=== PATIENT | female | born 1995 | race Hispanic/Latino ===

== ENCOUNTER 2017-11-27 22:50 | Inpatient (IN) | payer OTHER, MEDICAID, SELFPAY ==
[2017-11-27 23:55] VITALS: BP 120/53; PULSE 138; RESP 16; TEMP 39.4; O2SAT 99
[2017-11-28] VITALS (14 sets, daily range): BP systolic 90–114; BP diastolic 45–80; PULSE 79–130; RESP 15–20; TEMP 36.4–38.3; O2SAT 94–100; BMI 29.9
--- NOTE | 2017-11-28 | PATH_ITS ---
[facility] Accession Number: [id number] . 01 Material submitted: . APPENDIX . 02 Diagnosis: Appendix: Acute necrotizing appendicitis. I/12/03/2017 . 02 Electronically signed: . Poncho Tilley MD, Pathologist NPI- [id number] . 02 Gross description: . Received in formalin labeled appendix, is an intact appendix (length 4.7 cm, diameter 0.7 cm) with red-brown smooth shiny serosa and mesoappendix (up to 0.9 cm in depth). Starr-yellow flaky friable exudate covers a portion of the specimen. The lumen contains breen-pink solid soft material. The wall is up to 0.3 cm thick. No nodules, masses, or lesions are identified. The resection margin is inked black. Section code: (A1) resection margin enface and 3 additional slices; (A2) one half of the bivalved tip. (JM:bf) /BFI . 02 Pathologist provided ICD-10: K35.80 . 02 CPT . 094011 Performed at: 01 [facility] [address] [place] [address], [place], [place] [id number] MD Ramy Gomez MD Phone: [phone] Performed at: [address] [id number] [place], [place] [id number] MD Shashi Kim MD Phone: [phone]
--- NOTE | 2017-11-28 00:44 | PM.HP.1 ---
History of Present Illness Date Patient Seen: 11/28/17 Time Patient Seen: 00:44 Chief complaint: APPENDICITIS Narrative: Patient is an otherwise healthy young woman who has had 4 days of lower abdominal pain accompanied by anorexia but no real nausea or vomiting. Her last p.o. liquids were yesterday and her last p.o. solids with the day before. She has never had pain like this before. It increases with motion. She has received a fair amount of narcotics at the hospital from when she was transferred to control her pain. Even so with even slight motion she has significant pain. There is an underlying continuous pain as well. Patient History Medical History Healthy female adult (Acute) Family & Social History Safety & Behavioral: Feels Safe in Current Yes Environment Been Physically Hurt or No Threatened By a Person Suicidal Ideation Description None Suicide Plan Description No Plan Tobacco & Substance use: Smoking Status Never smoker alcohol intake frequency a few times a month Meds Allergies Allergy/AdvReac Type Severity Reaction Status Date / Time No Known Drug Allergies Allergy Verified 11/28/17 00:42 Review of Systems Review of Systems No visual difficulties double vision pain arise earaches or sore throat. No cough cold or asthma. No tooth aches or trouble swallowing. No heart problems or murmurs chest pain. No black or bloody bowel movements. No seizures or blackouts. No numbness or tingling. No problems with the pancreas or thyroid she is aware of. Normal menstrual period Last week. Exam Vital Signs (past 8 hours): - 11/27/17 23:55 Temperature 103.0 F H Pulse Rate 138 H Respiratory Rate 16 Blood Pressure 120/53 L Pulse Oximetry 99 Narrative Exam Narrative: Co- Operative pleasant woman in no apparent distress. She is warm to the touch. Eyes are nonicteric. Pupils are small round and equal bilaterally conjunctivae are pink. Sclera white. Has swelling about the lids. Years without lesion. Nasal septum midline oral mucosa is dry no open lesions. Teeth are intact. She has some scarring about the face from acne. No other visible skin lesions. Her legs are hairless but she does occasionally shave them. I feel no nodes in the neck or supraclavicular areas. Her trachea is midline and mobile. Thyroid is not enlarged. There are no masses or tenderness in the neck or thyroid. Her lungs are clear to auscultation without rales or rhonchi and equal percussion. Heart very rapid rate and rhythm. No murmur or gallop appreciated. No bruit in the neck. Her abdomen is mildly protuberant and distended. She has involuntary guarding with rebound tenderness. No hernias are appreciated. No obvious enlargement of the liver spleen on percussion. She is alert and oriented x3. Speech rate and content are appropriate. Affect is appropriate. Reflexes appear to be symmetric 2+. She has 2+ dorsalis pedis pulses. Face is symmetric tongue is midline uvula elevates in the midline. Extraocular movements are intact. Objective Imaging CT scan - abdomen: Radiologist's impression: I do not have films to review as they were pushed to our institution but unfortunately there is no one to organized those at night and so I cannot review them. No disc was sent with the patient. The report reveals evidence of a perforated appendix and gallstones. There is free fluid in the abdomen. Labs Labs: Labs from [facility] her electrolytes are within normal limits. Liver function tests within normal limits. Lipase is 74 and normal. White count is 18 with an H&H of 14 and 42. Platelet count is 327. She has 85 neutrophils 6 lymphocytes and 7 monocytes. Assessment & Plan (1) Acute perforated appendicitis: Current visit: Yes Status: Acute (2) Cholelithiasis: Current visit: Yes Status: Chronic Plan: Assessment/Plan Narrative: Patient with a 4 day history of abdominal pain and physical exam with diffuse peritonitis, a rigid abdomen with involuntary guarding and tachycardia with a pulse of 128 and with a temperature to 103 suggesting sepsis. Patient has received a dose of Zosyn in the referring hospital at 10:30 pm 11/27. Will give her Tylenol, a fluid bolus, and ultimately take to the operating room to remove her appendix and irrigated out her abdomen. I should be able to do this laparoscopically. I talked to the patient about operating. Risks of bleeding infection abscess future difficulty with fertility all discussed with her. She appears to understand and wishes to proceed. Have no plan at this time to deal surgically with her gallstones. If they become symptomatic she may need to have them removed in the future.
[2017-11-28] MEDS: LACTATED RINGERS 1,000 ML 1000 ML IV (00:53)
[2017-11-28] MEDS: ACETAMINOPHEN 325 MG TABLET 650 MG PO (01:03)
[2017-11-28 01:23] LABS: Pregnancy Test Urine Negative (Negative)
[2017-11-28] MEDS: PIPERACILLIN-TAZO 3.375 GM/50 ML FROZ.PIGGY IV ×4 (03:02→20:28)
[2017-11-28] MEDS: BUPIVACAINE 0.5% (PF) 30 ML VIAL INJ (03:11)
--- NOTE | 2017-11-28 03:24 | PM.OP.1 ---
Operative Date/Time/Diagnoses Date of procedure: 11/28/17 Time of procedure: 03:24 Pre-op diagnosis: Perforated appendicitis Post-op diagnosis: same Procedure & Clinicians Procedure: Laparoscopic appendectomy Same procedure as scheduled: Yes Indications: Perforated appendicitis with peritonitis and sepsis Surgeon: Carlos Vazquez Click Yes if Unassisted: Yes Anesthesia Type: General Operative Notes Findings: Perforated appendix with the tip adherent to the right tube and ovary. SCOAP protocol was followed. Closure Type: primary Specimen(s): other (Appendix) Implants & Drains: 7 mm Manuel-Alicea drain Estimated Blood Loss (mL): 5 Blood products transfused: none Procedure in detail: The patient was placed supine on the operating room table underwent general endotracheal anesthesia. A Agudelo catheter was placed and she was prepped and draped in the usual fashion. Local anesthetic was infiltrated beneath the umbilicus and a small incision made here. It was carried down the level of the fascia. The fascia was opened the peritoneum entered under direct vision. Stay sutures of 0 Polysorb were placed in the fascia and his son cannula was inserted. The abdomen is insufflated. Two additional ports were placed 1 between the umbilicus and pubis on the 2nd in the left lower quadrant. The appendix was readily identified it was a adherent to the right tube and ovary. Cultures were taken of the fluid within the pelvis. Using blunt dissection the appendix was dissected away from the tube and ovary and the mesentery was divided with cautery. a tie was placed at the base of the appendix of 0 PDS the appendix was transected distal to this and immediately placed in a bag and removed without spillage. The end of the a appendiceal mucosa was cauterized. The pelvis and right gutter and right upper quadrant were irrigated and suctioned free of purulent material. A drain was placed in the pelvis and right gutter. It Was brought out through the port site between the umbilicus and pubis. It was secured with a 3 0 nylon. The ports were then all removed and the stay sutures at the umbilicus were tied. The wounds were irrigated and the skin closed with interrupted 4 0 Polysorb subcuticular stitches and Steri-Strips. Dressings were applied and the patient was awakened and taken recovery area in good condition. Complications: none Condition: stable Disposition: PACU Plan for aftercare: Admit IV antibiotics fluids
[2017-11-28] MEDS: LACTATED RINGERS 1,000 ML 42 ML IV (04:06)
[2017-11-28] MEDS: DEXTROSE 5%-LACTATED RINGERS 1,000 ML 125 ML IV ×2 (04:25→12:53)
--- NOTE | 2017-11-28 07:05 | PC.NURSE ---
0400: pt arrived from pacu, denied pain or n/v, abdomen distended, lap sites x3 cdi. IVF infusing. BTX4 hypoactive. low BP, but denies dizziness or lightheadedness. 0640: pt c/o abdominal pain, morphine ACCOUNTING COORDINATOR 2mg, 20min, 30. Right after pushing her pain button she felt nauseous and had 20cc of emesis. notified Dr. Vazquez, VTO for zofran 4mg PRN. pt has been up to the bathroom a couple times.
[2017-11-28] MEDS: ONDANSETRON 4 MG/2 ML INJ IV (08:42)
--- NOTE | 2017-11-28 09:00 | PC.NURSE ---
Addendum entered by Monica Hendrickson R.N. 11/28/17 11:35: Pt reports nausea has improved, ambulating in velazquez with STRAIN TECHNICIAN. Original Note: Pt c/o nausea, ne emesis, given 4mg ivp zofran.
--- NOTE | 2017-11-28 13:28 | PC.NURSE ---
ASSUMED CARE OF PT AT APPROX 1315. UPON ROUNDING ON PT. PT SITTING UP IN CHAIR. IVF INFUSING PER ORDERS. CENTRAL SUPPLY TECHNICIAN SETTINGS VERIFIED PER EMAR. PT DENIES NEEDS. CALL LIGHT WITHIN REACH.
[2017-11-28] MEDS: MORPHINE PCA 30 MG/30 ML PCA.VIAL IV ×2 (14:38→22:33)
--- NOTE | 2017-11-28 16:28 | CM.DANOTE ---
Discharge Planning/Care Management DCP: assessment: case received, EMR reviewed and met with pt. Introduced self and role. Pt is a 22 year old female [place] [facility] [place] taken to surgery by Dr. Vazquez late last night. DX: appendicitis/perforated. Payer: [place]/Medicaid P: home when stable for same. DCP team to follow prn for any d/c needs that may arise, none are identified at this time. CM Discharge Assessment Start: 11/28/17 16:25 Freq: Status: Active Protocol: Document 11/28/17 16:26 ITV (Rec: 11/28/17 16:28 ITV [id number]) Discharge Planning Assessment History Provided By Patient Medical Record Has Patient been admitted in last 30 No days? Household Members spouse family Comment pt lives in [place] with her spouse and faustino. Spouse rooming in, faustino will pick her up at d/c. Pt brought [place] [facility] [place] direct [place] Independent with ADL's Yes Is patient alert and oriented? Yes Discharge Plan Home Transportation Arrangement faustino will pick her up Review Status In Process Next Review Type Continued Stay Review
--- NOTE | 2017-11-28 23:35 | PC.NURSE ---
Addendum entered by Florencia Sommers R.N. 11/29/17 06:29: Slept well during night. States pain is 6/10 this morning and tolerable. Using TAKE OUT WAITER/WAITRESS as needed and used 6mg this shift. Original Note: Addendum entered by Florencia Sommers R.N. 11/29/17 00:08: Refused to put on SCD's even after reminder of purpose. States they are too hot for her to be able to sleep with them on. Reminded to ankle wave when awake. Original Note: Alert and oriented. Breath sounds CTA with RA sat of 99%. HRR. Denies nausea. BT absent but abdomen is soft. Tender around umbilicus and distended. States she is burping but denies flatus. Bandaid dressings to abdomen is CDI. ELVI compressed with serosanguinous drainage noted in bulb. Denies urinary concerns. SBA to bathroom and voided 300cc clear yellow urine. Independent with bed mobility. Moderate fall risk but alarm is not felt to be necessary as has been calling appropriately for assistance. States abdominal pain is currently 7/10 but is comfortable and has TAKE OUT WAITER/WAITRESS to use as needed.
[2017-11-29] VITALS (7 sets, daily range): BP systolic 90–114; BP diastolic 46–67; PULSE 59–84; RESP 14–18; TEMP 36.2–36.7; O2SAT 99–100
[2017-11-29] MEDS: PIPERACILLIN-TAZO 3.375 GM/50 ML FROZ.PIGGY IV ×4 (02:47→20:44)
[2017-11-29 05:28] LABS: Add Manual Diff / Slide Review NO; Basophils Percent Auto 0.2 % (0-2); Hematocrit 35.7 % (36-46); Hemoglobin 12.1 g/dL (12.0-16.0); Lymphocytes Percent Auto 6.8 % (25-40); Mean Corpuscular Hemoglobin 29.8 PG (26-34); Mean Corpuscular Volume 87.8 fL (80-100); Monocytes Percent Auto 7.1 % (3-14); Neutrophils Absolute Auto 22500 /uL (3000-5900); Neutrophils Percent Auto 85.9 % (50-75); Platelet Count 307 X10^3/uL (150-400); Red Blood Cell Count 4.07 X10^6/uL (4.0-5.2); Red Cell Distribution Width 12.9 % (11.6-14.8); White Blood Cell Count 26.2 X10^3/uL (4.5-11.0)
[2017-11-29] MEDS: MORPHINE PCA 30 MG/30 ML PCA.VIAL IV (06:27)
[2017-11-29] MEDS: DEXTROSE 5%-LACTATED RINGERS 1,000 ML 42 ML IV (08:48)
--- NOTE | 2017-11-29 12:26 | P.PN_ITS ---
Subjective Date Patient Seen: 11/29/17 Time Patient Seen: 12:24 Interval history: Patient feels better than yesterday. Hardly ever uses her SURVEYING TECHNICIAN except last night she used to when she turned over and had some pain. No nausea. Eating well. Exam Vital Signs (past 8 hours): - 11/29/17 05:58 11/29/17 08:00 Temperature 97.2 F L 97.3 F L Pulse Rate 84 59 L Respiratory Rate 16 14 Blood Pressure 106/66 102/49 L Pulse Oximetry 100 100 Oxygen Delivery Method Room Air Oxygen Flow Rate 0 Narrative Exam Narrative: Preoperative guarding and tenderness have disappeared. Band- aids are dry and intact. The drainage is a little cloudy. Objective Labs Result Diagrams: 11/29/17 05:06 Labs: Laboratory Results - last 24 hr 11/29/17 05:06 WBC 26.2 H RBC 4.07 Hgb 12.1 Hct 35.7 L MCV 87.8 MCH 29.8 MCHC 34.0 RDW 12.9 Plt Count 307 Neut % (Auto) 85.9 H Lymph % (Auto) 6.8 L [place] % (Auto) 7.1 Eos % (Auto) 0.0 L Baso % (Auto) 0.2 Neut # (Auto) 17023 H Assessment & Plan Post-op (1) Acute perforated appendicitis: Current Visit: Yes Status: Acute Assessment and plan: Doing. White blood cell count however it has gone up within down. Little bit concerning but clinic will continue her IV antibiotics but mobilized further by saline locking her IV and switch her to p.o. pain meds. Continue DVT prophylaxis. Postoperative Procedures Operation Date: 11/28/17 01:40 Actual Procedures Side Surgeon p Laparoscopic Appendectomy Not Applicable Carlos Vazquez MD Time Spent With Patient less than 15 minutes
[2017-11-29] MEDS: SODIUM CHLORIDE 0.9% FLUSH 10 ML IV ×2 (13:46→20:45)
--- NOTE | 2017-11-29 14:50 | PC.NURSE ---
1430 Pt is up and about in the room, BRP. denies pain at this time. Remains on IV antibx. VS WNL. eating gen diet .
--- NOTE | 2017-11-29 14:52 | CM.DPC ---
DCP Cont: Patient is continuing on IV antibiotics, secondary to post-appendectomy, unstable white count. P: Will check in tomorrow, goal is to go home with family, as soon as she can go on oral antibiotics. Tawny Khan RN/Technical Photographer
--- NOTE | 2017-11-29 22:54 | PC.NURSE ---
SHIFT NOTE Pt reports increase in vaginal discharge, possible yeast infection, denies any itching or discomfort. advised to eat more yogurt for probiotics due to IV antibiotics. will communicate to oncoming RN to monitor.
[2017-11-30] MEDS: PIPERACILLIN-TAZO 3.375 GM/50 ML FROZ.PIGGY IV ×4 (03:25→20:39)
[2017-11-30] MEDS: HYDROCODONE/ACET 5/325 TABLET 1 TAB PO (03:25)
[2017-11-30 06:08] VITALS: BP 96/54; PULSE 71; RESP 16; TEMP 36.8; O2SAT 99
[2017-11-30 08:30] VITALS: BP 101/64; PULSE 79; RESP 15; TEMP 36.5; O2SAT 99
[2017-11-30] MEDS: SODIUM CHLORIDE 0.9% FLUSH 10 ML IV ×2 (09:08→20:39)
[2017-11-30 09:46] LABS: Add Manual Diff / Slide Review NO; Basophils Percent Auto 0.5 % (0-2); Eosinophils Percent Auto 1.1 % (2-4); Hematocrit 36.7 % (36-46); Hemoglobin 12.4 g/dL (12.0-16.0); Lymphocytes Percent Auto 27.1 % (25-40); Mean Corpuscular HGB Conc 33.7 % (30-36); Mean Corpuscular Hemoglobin 29.8 PG (26-34); Mean Corpuscular Volume 88.3 fL (80-100); Monocytes Percent Auto 6.2 % (3-14); Neutrophils Absolute Auto 7800 /uL (3000-5900); Neutrophils Percent Auto 65.1 % (50-75); Platelet Count 321 X10^3/uL (150-400); Red Blood Cell Count 4.15 X10^6/uL (4.0-5.2); Red Cell Distribution Width 13.1 % (11.6-14.8); White Blood Cell Count 11.9 X10^3/uL (4.5-11.0)
--- NOTE | 2017-11-30 11:10 | PC.NURSE ---
1100 Pt ambulatory in the room, up in chair, BRP. denies pain. No c/o ELVI drain to abd intact.
--- NOTE | 2017-11-30 12:11 | CM.DPC ---
DCP Cont: Patient is continuing on IV antibiotics, secondary to appendecitis. P: Will return home as soon as patient's white blood cell count is stable, and she can go on oral antibiotics. Tawny Khan RN/Architectural Technologist
--- NOTE | 2017-11-30 13:20 | P.PN_ITS ---
Subjective Date Patient Seen: 11/30/17 Time Patient Seen: 13:18 Exam Vital Signs (past 8 hours): - 11/30/17 06:08 11/30/17 08:30 Temperature 98.3 F 97.7 F Pulse Rate 71 79 Respiratory Rate 16 15 Blood Pressure 96/54 L 101/64 Pulse Oximetry 99 99 Oxygen Delivery Method Room Air Oxygen Flow Rate 0 Narrative Exam Narrative: Patient is feeling okay. Tolerating diet. She is passing flatus. Not had a bowel movement. Objective Labs Result Diagrams: 11/30/17 09:35 Labs: Laboratory Results - last 24 hr 11/30/17 09:35 WBC 11.9 H D RBC 4.15 Hgb 12.4 Hct 36.7 MCV 88.3 MCH 29.8 MCHC 33.7 RDW 13.1 Plt Count 321 Neut % (Auto) 65.1 D Lymph % (Auto) 27.1 D Jenkins % (Auto) 6.2 Eos % (Auto) 1.1 L Baso % (Auto) 0.5 Neut # (Auto) 7800 H Assessment & Plan Post-op Postoperative Procedures Operation Date: 11/28/17 01:40 Actual Procedures Side Surgeon p Laparoscopic Appendectomy Not Applicable Carlos Vazquez MD Postoperative status: doing well Postoperative plan: other (Drain removed. We will probably discharge tomorrow morning. White blood cell count down to normal.) Time Spent With Patient 25 - 35 minutes
--- NOTE | 2017-11-30 13:55 | PC.NURSE ---
Pt up ambulating in [facility], Dr Vazquez dcd the ELVI tube at approx 12noon today. Will cont w/IV antibx per .
[2017-11-30 14:49] VITALS: BP 104/66; PULSE 74; RESP 15; TEMP 36.4; O2SAT 100
[2017-11-30 18:38] VITALS: BP 104/64; PULSE 95; RESP 16; TEMP 36.4; O2SAT 100
[2017-11-30 22:14] VITALS: BP 117/69; PULSE 80; RESP 16; TEMP 36.2; O2SAT 100
[2017-12-01 00:01] VITALS: BP 119/76; PULSE 89; RESP 16; TEMP 36.6; O2SAT 99
[2017-12-01] MEDS: PIPERACILLIN-TAZO 3.375 GM/50 ML FROZ.PIGGY IV (03:11)
[2017-12-01 05:14] LABS: Add Manual Diff / Slide Review NO; Basophils Percent Auto 0.3 % (0-2); Eosinophils Percent Auto 1.4 % (2-4); Hematocrit 38.2 % (36-46); Hemoglobin 13.1 g/dL (12.0-16.0); Lymphocytes Percent Auto 19.6 % (25-40); Mean Corpuscular HGB Conc 34.3 % (30-36); Mean Corpuscular Hemoglobin 30.1 PG (26-34); Mean Corpuscular Volume 87.8 fL (80-100); Monocytes Percent Auto 7.4 % (3-14); Neutrophils Absolute Auto 10700 /uL (3000-5900); Neutrophils Percent Auto 71.3 % (50-75); Platelet Count 384 X10^3/uL (150-400); Red Blood Cell Count 4.35 X10^6/uL (4.0-5.2)
[2017-12-01 05:45] VITALS: BP 116/66; PULSE 96; RESP 16; TEMP 36.7; O2SAT 98
[2017-12-01] MEDS: SODIUM CHLORIDE 0.9% FLUSH 10 ML IV (08:05)
[2017-12-01 08:14] VITALS: O2SAT 99
[2017-12-01 08:51] VITALS: BP 102/63; PULSE 89; RESP 14; TEMP 36.6; O2SAT 98
--- NOTE | 2017-12-01 09:49 | PC.NURSE ---
Addendum entered by Flor De La O R.N. 12/01/17 11:15: Discharge: IV dc'd intact. Reviewed and provided all d/c info. All belongings collected and sent with patient. Wheeled out to private vehicle by this newswriter. Original Note: Shift summary: Alert and oriented X3. Denies pain. Lap sites to abd C/D/I, one with scant old drainage. BT+, flatus+. Had a BM on the night club manager (first post-op). Denies N/V. Denies fever/chills. Abd soft. C/O discomfort with IV flush this morning- held IV abx r/t the same, will let MD know. She's hoping she will be dc'd home today. Up indep in room, gait steady. Calls with needs.
--- NOTE | 2017-12-01 09:54 | P.DS_ITS ---
History of Present Illness Chief complaint: APPENDICITIS Narrative: Patient is an otherwise healthy young woman who has had 4 days of lower abdominal pain accompanied by anorexia but no real nausea or vomiting. Her last p.o. liquids were yesterday and her last p.o. solids with the day before. She has never had pain like this before. It increases with motion. She has received a fair amount of narcotics at the hospital from when she was transferred to control her pain. Even so with even slight motion she has significant pain. There is an underlying continuous pain as well. Discharge Providers Date of admission: 11/27/17 22:50 Discharge provider: Carlos Vazquez MD Summary Discharge Diagnosis: Perforated appendicitis with peritonitis Septic response with reported hypotension, tachycardia, fever to 103. Hospital Course: Patient underwent a laparoscopic appendectomy. Her postoperative course was fairly smooth. Her initial white count was 21 and went up to 26 postop it came down to 11 and 15. The she was tolerate diet and had been a her pulse came down to normal as did her blood pressure is stabilized and/normalized. She was discharged to follow up in the office. Exam Vital Signs (past 8 hours): - 12/01/17 05:45 12/01/17 08:14 12/01/17 08:51 Temperature 98.0 F 97.8 F Pulse Rate 96 H 89 Respiratory Rate 16 14 Blood Pressure 116/66 102/63 Pulse Oximetry 98 99 98 Oxygen Delivery Method Room Air Oxygen Flow Rate 0 Narrative Exam Narrative: Abdomen is soft. No cellulitis. Wounds all look fine. Objective Labs Result Diagrams: 12/01/17 05:00 Labs: Laboratory Results - last 24 hr 11/30/17 12/01/17 09:35 05:00 WBC 11.9 H D 15.0 H RBC 4.15 4.35 Hgb 12.4 13.1 Hct 36.7 38.2 MCV 88.3 87.8 MCH 29.8 30.1 MCHC 33.7 34.3 RDW 13.1 13.0 Plt Count 321 384 Neut % (Auto) 65.1 D 71.3 Lymph % (Auto) 27.1 D 19.6 L [place] % (Auto) 6.2 7.4 Eos % (Auto) 1.1 L 1.4 L Baso % (Auto) 0.5 0.3 Neut # (Auto) 7800 H 85603 H Discharge Plan Discharge Plan Patient Disposition: Home, Self-Care Discharge comment: You had a perforated appendicitis. You were treated with Zosyn in the hospital which is a type of antibiotic. I am sending her home on 2 antibiotic pills. Do not use any alcohol while taking them as it will cause her to vomit. Discharge Med Rec/Prescriptions Prescriptions: New hydrocodone-acetaminophen 5-325 mg tablet 1 tab PO Q4H PRN (Reason: Incisional pain) Qty: 7 RF: 0 metronidazole 500 mg tablet 500 mg PO TID Qty: 14 RF: 0 ciprofloxacin HCl 500 mg tablet 500 mg PO Q12H Qty: 10 RF: 0 No Action No Known Home Medications RF: 0 Follow up/Referrals: Carlos Vazquez MD [Physician] - 12/09/17 2:15 pm Provider Discharge Instructions Diet: Diet as Tolerated Activity: Do not drive until pain free off medication. He may walk. No lifting over 10 lb for 3more weeks. No straining. Wound Care Report to your healthcare provider any signs of infection, such as:: chills, fever, night sweats, increased pain and unusual drainage Dressing: Keep a Band-Aid over lowest wound until drainage stops. You may shower. Visit Report/Discharge Packet Stand Alone Forms: Work/Release Restrictions Discharge Data Attending Provider: Carlos Vazquez Admit Date/Time: 11/27/17 22:50
--- NOTE | 2017-12-01 10:05 | CM.DPC ---
DCP: Case again received and d/c to home order is noted. Pt home today with her family as per her plan.
== END 2017-12-01 11:10 | disposition home or self-care (01) | DRG 225 ==
PROVIDERS: Admitting Provider Specialist; Visit Provider Specialist
PROC: 0DTJ4ZZ Resection of Appendix, Percutaneous Endoscopic Approach (ICD-10-PCS; CPT 44970; principal; 2017-11-28 01:40)
DX: K35.2 Acute appendicitis with generalized peritonitis (principal); K80.20 Calculus of gallbladder without cholecystitis without obstruction
CPT/HCPCS: 36415; 36592; 81025; 85025; 87070; 87075; 87205; J0330; J1100; J2250; J2405; J2543; J2704; J3010; J7121

== ENCOUNTER 2018-01-15 11:48 | Day surgery (SDC) | payer OTHER, MEDICAID, SELFPAY ==
[2017-12-24 15:10] VITALS: BMI 29.9
[2018-01-12 07:51] VITALS: BMI 29.9
[2018-01-15] VITALS (7 sets, daily range): BP systolic 102–131; BP diastolic 71–88; PULSE 92–114; RESP 10–20; TEMP 36.1–36.4; O2SAT 98–100; BMI 29.9
--- NOTE | 2018-01-15 | PATH_ITS ---
[facility] Accession Number: [id number] . 01 Material submitted: . PILONIDAL CYST . 02 Diagnosis: Specimen Designated Pilonidal Cyst: Pilonidal cyst, severely inflamed with associated fibrous scarring. MRV/01/20/2018 . 02 Electronically signed: . Poncho Tilley MD, Pathologist NPI- [id number] . 01 Gross description: . Received in formalin, labeled pilonidal cyst, is an unoriented ellipse of breen-white smooth and shiny skin with underlying tissue (6.1 x 2.5 x 2.0 cm). The surface contains multiple linear puckers. The underlying tissue is fatty and densely fibrous, which coincides with the overlying puckered skin. The resection margin is inked black. Manager Of Organizational Development serial sections submitted in cassettes A1-A4. ([id number]) /[facility] . 02 Pathologist provided ICD-10: L05.01 . 02 CPT . 498870 Performed at: 01 [facility] [address] [id number] MD Ramy Gomez MD Phone: [phone] Performed at: 02 [facility] [address] [place], [place] [id number] MD Shashi Kim MD Phone: [phone]
[2018-01-15] MEDS: LACTATED RINGERS 1,000 ML 100 ML IV (13:01)
--- NOTE | 2018-01-15 14:05 | PM.PREOP ---
Pre-operative Note Interval Note Pre-op Check: Yes History & Physical Reviewed by Physician and Yes Exam Performed Changes: No
[2018-01-15] MEDS: CLINDAMYCIN 900 MG/50 ML PIGGYBACK 50 MG IV (14:38)
[2018-01-15] MEDS: CEFAZOLIN 2 GM/100 ML FROZ.PIGGY IV (14:50)
--- NOTE | 2018-01-15 15:08 | SUR.OPER ---
Prone on padded OR bed, head in foam head support, gel chest rolls, gel pad under knees, pillow under lower legs, toes free of pressure, arms secured on padded arm boards at <90 degrees abduction. Safety belt at thigh.
--- NOTE | 2018-01-15 15:10 | SUR.OPER ---
buttocks taped apart
[2018-01-15] MEDS: BUPIVACAINE 0.5% W/ EPI (PF) VIAL 30 ML INJ (15:21)
--- NOTE | 2018-01-15 15:51 | PM.OP.1 ---
Operative Date/Time/Diagnoses Date of procedure: 01/15/18 Time of procedure: 15:51 Pre-op diagnosis: Pilonidal cyst abscess Post-op diagnosis: same Procedure & Clinicians Procedure: complex excision with shift to tissue off the midline Same procedure as scheduled: Yes Indications: post treatment of an abscess pilonidal cyst Surgeon: Carlos Vazquez Click Yes if Unassisted: Yes Anesthesia Type: General Operative Notes Findings: cyst excised intact. No spillage of material into the wound. Closure Type: primary Specimen(s): other ( Cyst) Implants & Drains: 19 Guyanese Rex drain Applied: drain(s) ( Rex drain) Estimated Blood Loss (mL): 20 Blood products transfused: none Procedure in detail: the patient was placed Mich knife prone on the operating room table after undergoing general endotracheal anesthesia. She was padded appropriately and prepped and draped in the usual fashion. An elliptical incision was made around the cyst with the center of the wound actually about 2 cm to the left of midline on the left. The end of the incision was curved up out of the crevice between the buttock cheeks. The cyst was excised sharply and with cautery. It was not entered and there was no spillage of material into the wound. Local anesthetic was infiltrated under the skin and the wound was irrigated and hemostasis meticulously accomplished. Subcu fat of the right buttock. This was to release the tissues. The tapes which had been placed to hold the cheeks apart were now released. A layer of 2 0 Polysorb interrupted sutures was placed deep in the wound to bring the soft tissues together. A 19 Guyanese Rex drain was placed over top of this and brought out superior to This brought the wound together nicely. It was secured with a 2 0 nylon. The subcu above the drain was closed with interrupted 3 0 Polysorb sutures. The skin was closed with a running 2 0 Prolene suture in a subcuticular fashion weaving the stitch down to the end of the incision from its superior aspect and then weaving it back up to the proximal aspect and bringing it out through the skin and tying it.Even so, because of the tension expected be placed on this wound several interrupted 2 0 nylon sutures were placed in the skin. Steri-Strips were then placed across it and a dressing applied. The patient was placed back on her bed extubated and taken to the recovery area in good condition. Complications: none Condition: stable Disposition: PACU Plan for aftercare: Follow-up in the office in the 4-5 days.
[2018-01-15] MEDS: fentaNYL 100 MCG/2 ML INJ IV (16:07)
[2018-01-15] MEDS: OXYCODONE/ACETAMINOPHEN 5/325 TABLET 1 TAB PO (16:18)
[2018-01-15] MEDS: ONDANSETRON 4 MG/2 ML INJ IV (16:44)
--- NOTE | 2018-01-15 16:45 | SUR.PHASEII ---
patient c/o nausea. Zofran per orders and breathign queeze ease with decreased nausea.
== END 2018-01-15 17:52 | disposition home or self-care (01) ==
PROVIDERS: Visit Provider Specialist
PROC: (CPT 11771; principal; 2018-01-15 13:30)
DX: L05.01 Pilonidal cyst with abscess (principal)
CPT/HCPCS: 11771; J0330; J0690; J1100; J2250; J2405; J2704; J3010